=== PATIENT | female | born 1985 | race Caucasian/White ===

== ENCOUNTER 2018-08-03 13:54 | Emergency (ER) | payer OTHER ==
--- NOTE | 2018-08-03 17:03 | ED Physician Documentation ---
PD HPI HEENT - Stated complaint Stated Complaint: THROAT PX - Chief complaint Chief Complaint: General - History obtained from History obtained from: Patient - History of Present Illness Timing - onset: How many days ago (2) Timing - duration: Days (2) Timing - details: Still present Location: Throat - Additional information Additional information: The patient is a 33-year-old female who presents with sore throat, congestion, and cough of 2 days' duration. She denies fever, headache, or abdominal symptoms. Her 9-year-old daughter has also been sick with respiratory symptoms. Review of Systems Constitutional: denies: Fever Eyes: denies: Irritation Ears: denies: Ear pain Nose: reports: Congestion Throat: reports: Sore throat Cardiac: denies: Chest pain / pressure Respiratory: reports: Cough. denies: Dyspnea GI: denies: Abdominal Pain, Nausea, Vomiting : denies: Dysuria Skin: denies: Rash Neurologic: denies: Headache PD PAST MEDICAL HISTORY - Past Medical History Past Medical History: Yes Cardiovascular: None Respiratory: None Neuro: None Endocrine/Autoimmune: None GI: None HOTEL NIGHT AUDITOR: None : None HEENT: None Psych: None Musculoskeletal: None Derm: None - Past Surgical History Past Surgical History: Yes General: Appendectomy Ortho: Spine surgery /HOTEL NIGHT AUDITOR: section - Present Medications Home Medications: Ambulatory Orders Medication Instructions Recorded Confirmed No Known Home Medications 08/03/18 08/03/18 - Allergies Allergies/Adverse Reactions: Allergies Allergy/AdvReac Type Severity Reaction Status Date / Time No Known Drug Allergies Allergy Verified 08/03/18 14:16 - Social History Does the pt smoke?: No Smoking Status: Former smoker Does the pt drink ETOH?: Yes Does the pt have substance abuse?: No - Immunizations Immunizations are current?: Yes - POLST Patient has POLST: No PD ED PE NORMAL - Vitals Vital signs reviewed: Yes (normal) - General General: Alert and oriented X 3, Well developed/nourished - HEENT HEENT: Atraumatic, EOMI, Ears normal, Other (Oropharynx mildly erythematous, without exudates or tonsillar swelling.) - Neck Neck: Supple, no meningeal sign, No adenopathy, No JVD - Cardiac Cardiac: RRR - Respiratory Respiratory: No respiratory distress, Clear bilaterally - Abdomen Abdomen: Soft, Non tender - Derm Derm: No rash - Extremities Extremities: No tenderness to palpate - Neuro Neuro: Alert and oriented X 3, No motor deficit, Normal speech Results - Vitals Vitals: Oxygen O2 Source Room air - Labs Labs: Microbiology 08/03/18 14:28 Group A Strep Throat Culture - Final Throat MIXED OROPHARYNGEAL MATTEO PRESENT. NO BETA STREP PRESENT IN CULTURE. Laboratory Tests 08/03/18 14:28 Group A Strep Rapid Negative PD MEDICAL DECISION MAKING - ED course Complexity details: reviewed results, re-evaluated patient, considered differential, d/w patient, d/w family ED course: The patient's presentation is most consistent with viral pharyngitis. Rapid strep screen is negative. I discussed with her the expected course of illness, symptomatic treatment and outpatient follow-up, as well as potentially worrisome signs or symptoms that should prompt reevaluation in the emergency department. Departure - Departure Disposition: 01 Home, Self Care Clinical Impression: Viral pharyngitis Condition: Stable Instructions: ED Pharyngitis Viral Follow-Up: POPPY TERRY MD [Primary Care Provider] - Comments: Use Tylenol or ibuprofen as needed for fever or discomfort. Drink plenty of fluids. You can gargle with cool liquids. Follow-up with your primary physician within 1-2 weeks. Call to schedule an appointment. Return to the emergency department if increasing difficulty swallowing, shortness of breath, or otherwise worsening symptoms. Discharge Date/Time: 08/03/18 17:10
[2018-08-03 17:09] VITALS: BP 112/70
== END 2018-08-03 17:10 | disposition home or self-care (01) ==
LOC: ED 13:54
DX: J02.8 Acute pharyngitis due to other specified organisms (principal); B97.89 Other viral agents as the cause of diseases classified elsewhere; Z87.891 Personal history of nicotine dependence
CPT/HCPCS: 87070; 87430; 99282; 99283

== ENCOUNTER 2019-07-02 12:52 | Emergency (ER) | payer OTHER ==
[2019-07-02 12:59] VITALS: BP 111/82
--- NOTE | 2019-07-02 14:05 | XRAY Report ---
Reason: knee inj Procedure Date: 07/02/2019 Accession Number: [id number] / [id number] Procedure: XR - Knee 4 View LT CPT Code: FULL RESULT: EXAM: LEFT KNEE RADIOGRAPHY EXAM DATE: 07/02/2019 01:26 PM. CLINICAL HISTORY: Knee inj. COMPARISON: None. TECHNIQUE: 4 views. FINDINGS: Bones: No fracture or focal bony lesion. Joints: No evidence of dislocation. Soft Tissues: There is mild prepatellar soft tissue swelling. There is a low dorsal soft tissue defect. IMPRESSION: No evidence of fracture or dislocation. RADIA
--- NOTE | 2019-07-02 15:18 | ED Physician Documentation ---
PD HPI LOWER EXT INJURY - Stated complaint Stated Complaint: GLF/L KNEE PX - Chief complaint Chief Complaint: Trauma Ext - History obtained from History obtained from: Patient - History of Present Illness PD HPI LOW EXT INJURY LOCATION: Left (Trip and fall hitting her left knee on concrete with moderate pain at home just prior to arrival. Declines pain medication. No other injuries. Of note she has a long history of spinal problems and has no numbness in the left leg without saddle anesthesia or fevers.) Review of Systems Constitutional: denies: Fever, Chills Respiratory: denies: Dyspnea, Cough GI: denies: Abdominal Pain, Nausea, Vomiting PD PAST MEDICAL HISTORY - Past Medical History Past Medical History: Yes Cardiovascular: None Respiratory: None Neuro: None Endocrine/Autoimmune: None GI: None TOWER TECHNICIAN: None : None HEENT: None Psych: None Musculoskeletal: None Derm: None Other Past Medical History: spina bifida - Past Surgical History Past Surgical History: Yes General: Appendectomy Ortho: Spine surgery /TOWER TECHNICIAN: section - Present Medications Home Medications: Ambulatory Orders Medication Instructions Recorded Confirmed No Known Home Medications 08/03/18 07/02/19 - Allergies Allergies/Adverse Reactions: Allergies Allergy/AdvReac Type Severity Reaction Status Date / Time No Known Drug Allergies Allergy Verified 07/02/19 15:02 - Social History Does the pt smoke?: No Smoking Status: Never smoker Does the pt drink ETOH?: Yes Does the pt have substance abuse?: No - Immunizations Immunizations are current?: Yes - POLST Patient has POLST: No PD ED PE NORMAL - Vitals Vital signs reviewed: Yes - General General: Alert and oriented X 3, No acute distress - Extremities Extremities: Other (Left knee has a shallow abrasion inferior to the patella with tenderness over the tibial plateau but no limited range of motion or ligamentous laxity. Negative grind testing. She has diminished but not absent sensation in the left L4 distribution with diminished left L4 reflex, but that is somewhat hard to check because of her knee injury.) - Neuro Neuro: Alert and oriented X 3, Normal speech Results - Vitals Vitals: Vital Signs - 24 hr 07/02/19 12:55 Temperature 36.5 C Heart Rate 69 Respiratory 116 H Rate Blood Pressure 111/82 H O2 Saturation 100 Oxygen O2 Source Room air - Rads (name of study) 4v L knee Radiology: EMP read contemporaneously (no frx) Departure - Departure Disposition: 01 Home, Self Care Clinical Impression: Lumbar radiculopathy Contusion of left knee Qualifiers: Encounter type: initial encounter Qualified Code(s): S80.02XA - Contusion of left knee, initial encounter Condition: Good Record reviewed to determine appropriate education?: Yes Instructions: ED Contusion Soft Tissue Comments: You can wear the splint as needed for the knee, return for new or worsening symptoms. Let your physical therapist know tomorrow when you see them that you have probably a new left L4 radiculopathy. Also let your primary care physician know this. Return for new or worsening symptoms. Forms: Activity restrictions
== END 2019-07-02 15:25 | disposition home or self-care (01) ==
LOC: ED 12:52
DX: S80.02XA Contusion of left knee, initial encounter (principal); S80.212A Abrasion, left knee, initial encounter; W01.0XXA Fall on same level from slipping, tripping and stumbling without subsequent striking against object, initial encounter; Y92.009 Unspecified place in unspecified non-institutional (private) residence as the place of occurrence of the external cause; M54.16 Radiculopathy, lumbar region
CPT/HCPCS: 99283

== ENCOUNTER 2019-08-09 20:34 | Emergency (ER) | payer OTHER ==
[2019-08-09 20:53] VITALS: BP 138/76
[2019-08-09 21:01] LABS: BILIRUBIN,URINE NEGATIVE (NEGATIVE); GLUCOSE, URINE (UA) NEGATIVE (NEGATIVE); KETONES,URINE (UA) NEGATIVE (NEGATIVE); LEUKOCYTE ESTERASE, URINE TRACE (NEGATIVE); NITRITE,URINE POSITIVE (NEGATIVE); OCCULT BLOOD,URINE LARGE (NEGATIVE); PH,URINE 6.5 PH (5.0-7.5); PROTEIN,URINE NEGATIVE (NEGATIVE); UROBILINOGEN,URINE 0.2 (NORMAL) E.U./dL (NORMAL)
--- NOTE | 2019-08-09 21:01 | ED Physician Documentation ---
PD HPI FEMALE - Stated complaint Stated Complaint: BK PX - Chief complaint Chief Complaint: Back Pain - History obtained from History obtained from: Patient - History of Present Illness Timing - onset: Yesterday Timing - details: Gradual onset, Waxing and waning Pain level max: 9 Associated symptoms: Back pain (bilateral). No: Fever Contributing factors: No: Similar symptoms before: Diagnosis (similar to UTI/"kidney infection" that she had approximately 10 years ago) Recently seen: Not recently seen - Additional information Additional information: c/o bilateral back pain, waxing and waning since yesterday, associated with burning dysuria and urinary frequency. Reports urine has been cloudy with foul odor. Review of Systems Constitutional: denies: Fever, Chills, Sweats GI: denies: Abdominal Pain, Nausea, Vomiting, Constipation, Diarrhea : reports: Dysuria, Frequency. denies: Discharge, Now EGA Musculoskeletal: reports: Back pain PD PAST MEDICAL HISTORY - Past Medical History Past Medical History: No Cardiovascular: None Respiratory: None Neuro: None Endocrine/Autoimmune: None GI: None FLUID PUMP OPERATOR: None : None HEENT: None Psych: None Musculoskeletal: None Derm: None - Past Surgical History Past Surgical History: Yes General: Appendectomy Ortho: Spine surgery /FLUID PUMP OPERATOR: section - Present Medications Home Medications: Ambulatory Orders Medication Instructions Recorded Confirmed Ciprofloxacin HCl [Cipro] 500 mg PO BID #14 tablet 08/09/19 Cranberry Fruit Extract [Cranberry] 500 mg PO 08/09/19 Phenazopyridine HCl [Pyridium] 200 mg PO TID PRN #6 tablet 08/09/19 - Allergies Allergies/Adverse Reactions: Allergies Allergy/AdvReac Type Severity Reaction Status Date / Time No Known Drug Allergies Allergy Verified 08/09/19 20:54 - Social History Does the pt smoke?: No Smoking Status: Never smoker Does the pt drink ETOH?: Yes Does the pt have substance abuse?: No - Immunizations Immunizations are current?: Yes - POLST Patient has POLST: No PD ED PE NORMAL - Vitals Vital signs reviewed: Yes - General General: Alert and oriented X 3, No acute distress, Well developed/nourished - Abdomen Abdomen: Soft, Non tender - Back Back: Other (mild bilateral CVA tenderness) Results - Vitals Vitals: Vital Signs - 24 hr 08/09/19 20:48 Temperature 37.5 C Heart Rate 128 H Respiratory 18 Rate Blood Pressure 138/76 H O2 Saturation 100 Oxygen O2 Source Room air - Labs Labs: Laboratory Tests 08/09/19 20:47 Urine Color LT. YELLOW Urine Clarity SL. CLOUDY Urine pH 6.5 Ur Specific [place] 1.010 Urine Protein NEGATIVE Urine Glucose (UA) NEGATIVE Urine Ketones NEGATIVE Urine Occult Blood LARGE H Urine Nitrite POSITIVE H Urine Bilirubin NEGATIVE Urine Urobilinogen 0.2 (NORMAL) Ur Leukocyte Esterase TRACE H Urine RBC 0-5 Urine WBC 6-10 H Ur Squamous Epith Cells FEW Squamous Urine Bacteria Moderate H Ur Microscopic Review INDICATED Urine Culture Comments INDICATED Urine HCG, Qual NEGATIVE PD MEDICAL DECISION MAKING - ED course Complexity details: reviewed results, considered differential, d/w patient ED course: Patient says she has no drug allergies, but she says she had n/v with sulfa, macrobid, and amoxil. She recognizes this does not constitute true allergy, but she describes n/v to the point of not being able to tolerate the medications and thus I will prescribe Cipro for this UTI Departure - Departure Disposition: 01 Home, Self Care Clinical Impression: UTI (urinary tract infection) Qualifiers: Urinary tract infection type: acute cystitis Hematuria presence: with hematuria Qualified Code(s): N30.01 - Acute cystitis with hematuria Condition: Good Instructions: ED UTI Cystitis Female Follow-Up: PPOPY TERRY MD [Primary Care Provider] - (3-4 days if symptoms not improving ) Prescriptions: Ciprofloxacin HCl [Cipro] 500 mg PO BID #14 tablet Phenazopyridine HCl [Pyridium] 200 mg PO TID PRN #6 tablet PRN Reason: dysuria Discharge Date/Time: 08/09/19 21:30
[2019-08-09 21:04] LABS: CLARITY,URINE SL. CLOUDY (CLEAR); HCG UR QUAL NEGATIVE
[2019-08-09 21:13] LABS: BACTERIA,URINE Moderate /HPF (None Seen); RBC,URINE 0-5 /HPF (0-5); SQUAMOUS EPITHELIAL CELL,UR FEW Squamous (<= Few)
[2019-08-09] MEDS ORDERED: PHENAZOPYRIDINE 100 MG TABLET PO STA (21:13)
[2019-08-09] MEDS ORDERED: CIPROFLOXACIN 250 MG TABLET PO STA (21:13)
== END 2019-08-09 21:30 | disposition home or self-care (01) ==
LOC: ED 20:34
DX: N30.01 Acute cystitis with hematuria (principal)
CPT/HCPCS: 81001; 81025; 87086; 87181; 99283; A9270; 81003

== ENCOUNTER 2019-12-29 15:37 | Emergency (ER) | payer OTHER ==
[2019-12-29] MEDS ORDERED: LORazepam 2 MG/ML VIAL IVP STA (16:17)
--- NOTE | 2019-12-29 16:27 | ED Physician Documentation ---
History of Present Illness - Stated complaint Stated Complaint: UPPER BACK PX, DIFFICULTY BREATHING, TINGLING ARMS - Chief complaint Chief Complaint: Cardiac - History obtained from History obtained from: Patient, Family - History of Present Illness Timing: Yesterday Pain level max: 3 Pain level now: 2 - Additonal information Additional information: 34-year-old female states that she had a "rare form of spina bifida" in her neck. She states that she had a cervical spine fusion in 2018 and that they "shaved part of her disc". She states that since yesterday she has had intermittent episodes of [id number] sensation in the back of her neck going to her shoulders. This lasts for a few seconds. Nothing makes it better or worse. Denies any trauma. Denies any chest pain. She does feel like she is occasionally short of breath. She does have a history of anxiety, but states that she does not feel like she is stressed about anything. Review of Systems Ten Systems: 10 systems reviewed and negative Constitutional: denies: Fever, Chills Throat: denies: Sore throat Cardiac: denies: Chest pain / pressure, Palpitations Respiratory: reports: Dyspnea. denies: Cough, Wheezing GI: denies: Abdominal Pain, Vomiting, Diarrhea : denies: Dysuria, Frequency, Hesitancy, Now EGA Skin: denies: Rash Musculoskeletal: denies: Neck pain, Back pain Neurologic: denies: Headache PD PAST MEDICAL HISTORY - Past Medical History Cardiovascular: None Respiratory: None Neuro: None Endocrine/Autoimmune: None GI: None LOT TECHNICIAN: None : None HEENT: None Psych: None Musculoskeletal: None Derm: None - Past Surgical History Past Surgical History: Yes General: Appendectomy Ortho: Spine surgery /LOT TECHNICIAN: section - Present Medications Home Medications: Ambulatory Orders Medication Instructions Recorded Confirmed Meloxicam [Mobic] 7.5 mg PO BID PRN #20 tablet 12/29/19 - Allergies Allergies/Adverse Reactions: Allergies Allergy/AdvReac Type Severity Reaction Status Date / Time No Known Drug Allergies Allergy Verified 08/09/19 20:54 - Social History Does the pt smoke?: No Smoking Status: Never smoker Does the pt drink ETOH?: Yes Does the pt have substance abuse?: No - Immunizations Immunizations are current?: Yes - POLST Patient has POLST: No PD ED PE NORMAL - Vitals Vital signs reviewed: Yes - General General: Alert and oriented X 3, No acute distress, Well developed/nourished - HEENT HEENT: PERRL, Moist mucous membranes - Neck Neck: Supple, no meningeal sign, No bony TTP, Other (Mild tenderness at the base of the neck. She states that this re-creates the pins and needle sensation.) - Cardiac Cardiac: RRR - Respiratory Respiratory: No respiratory distress, Clear bilaterally - Abdomen Abdomen: Soft, Non tender, Non distended - Derm Derm: Warm and dry, No rash - Extremities Extremities: Other (Normal bilateral lower extremity patellar and ankle jerk reflexes. Normal great toe extension bilaterally. 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, No motor deficit, No sensory deficit, Normal speech - Psych Psych: Normal mood, Normal affect Results - Vitals Vitals: Vital Signs - 24 hr 12/29/19 12/29/19 12/29/19 15:53 16:16 16:17 Temperature 36.8 C Heart Rate 83 88 77 Respiratory 28 H 24 24 Rate Blood Pressure 141/90 H 118/77 133/77 H O2 Saturation 100 99 99 12/29/19 18:11 Temperature Heart Rate 86 Respiratory 16 Rate Blood Pressure 112/64 O2 Saturation 100 Oxygen O2 Source Room air - EKG (time done) 1629 Rate: Rate (enter#) (89) Rhythm: NSR Alpha: Normal Intervals: Normal IN QRS: Normal Ischemia: Normal ST segments - Labs Labs: Laboratory Tests 12/29/19 12/29/19 12/29/19 16:20 16:20 16:20 WBC 10.9 H RBC 4.49 Hgb 13.3 Hct 39.2 MCV 87.3 MCH 29.6 MCHC 33.9 RDW 12.8 Plt Count 353 MPV 9.0 Neut # (Auto) 7.3 H Lymph # (Auto) 2.7 [place] # (Auto) 0.7 Eos # (Auto) 0.1 Baso # (Auto) 0.0 Absolute Nucleated RBC 0.00 Nucleated RBC % 0.0 ESR 28 H Sodium 136 Potassium 3.2 L Chloride 100 L Carbon Dioxide 26 Anion Gap 10.0 BUN 16 Creatinine 1.0 Estimated GFR (MDRD) 63 L Glucose 93 Calcium 9.4 Phosphorus 1.9 L Magnesium 1.7 Total Bilirubin 0.6 AST 23 ALT 34 Alkaline Phosphatase 75 C-Reactive Protein < 1.0 Total Protein 8.1 Albumin 4.5 Globulin 3.6 Albumin/Globulin Ratio 1.3 Lipase 31 PD MEDICAL DECISION MAKING - ED course Complexity details: reviewed results, re-evaluated patient, considered differential, d/w patient, d/w family, d/w sales enablement consultant ED course: 34-year-old female with central canal stenosis. Discussed the case with neurosurgery at [facility], Dr. Narayanan, Who compared today's images with her prior images at [facility] and states that they are unchanged. He states he will see her in clinic. They will call her tomorrow with an appointment. They will schedule this urgently. She was given a dose of Ativan here which helped. Also given dexamethasone. No significant neurological deficits at this time. Patient and family counseled regarding signs and symptoms for which I believe and urgent re-evaluation would be necessary. Patient with good understanding of and agreement to plan and is comfortable going home at this time This document was made in part using voice recognition software. While efforts are made to proofread this document, sound alike and grammatical errors may occur. Departure - Departure Disposition: 01 Home, Self Care Clinical Impression: Neck pain, Central stenosis of spinal canal Condition: Good Instructions: ED Neck Pain No Trauma Follow-Up: Raji Narayanan JR, MD [Physician No Access] - Within 1 week Prescriptions: Meloxicam [Mobic] 7.5 mg PO BID PRN #20 tablet PRN Reason: Pain Comments: Return if you worsen. Follow-up with [facility]. They will contact you for an appointment. They should contact you tomorrow. The number for the clinic is [phone]. Your CT scan is unchanged compared to your prior. These images were reviewed by Dr. Narayanan at [facility] Discharge Date/Time: 12/29/19 18:38
[2019-12-29 16:34] LABS: BASOPHILS % (AUTO) 0.4 %; EOSINOPHILS # (AUTO) 0.1 10^3/uL (0.0-0.7); EOSINOPHILS % (AUTO) 0.6 %; HGB - HEMOGLOBIN 13.3 g/dL (12.0-16.0); LYMPHOCYTES # (AUTO) 2.7 10^3/uL (1.5-3.5); LYMPHOCYTES % (AUTO) 24.6 %; MEAN CORPUSCULAR HEMOGLOBIN 29.6 pg (27.0-31.0); MEAN CORPUSCULAR HGB CONC 33.9 g/dL (32.0-36.0); MEAN CORPUSCULAR VOLUME 87.3 fL (81.0-99.0); MONOCYTES # (AUTO) 0.7 10^3/uL (0.0-1.0); MONOCYTES % (AUTO) 6.8 %; NEUTROPHILS # (AUTO) 7.3 10^3/uL (1.5-6.6); NEUTROPHILS % (AUTO) 67.2 %; PLT - PLATELET COUNT 353 10^3/uL (130-450); RED BLOOD COUNT 4.49 10^6/uL (4.20-5.40); RED CELL DISTRIBUTION WIDTH 12.8 % (12.0-15.0); WHITE BLOOD COUNT 10.9 x10^3/uL (4.8-10.8)
[2019-12-29 16:50] LABS: ALBUMIN 4.5 g/dL (3.2-5.5); ALBUMIN/GLOBULIN RATIO 1.3 (1.0-2.2); ALKALINE PHOSPHATASE 75 IU/L (42-121); ALT ALANINE AMINOTRANSFERASE 34 IU/L (10-60); AST ASPARTATE AMINOTRANSFERASE 23 IU/L (10-42); BILIRUBIN,TOTAL 0.6 mg/dL (0.2-1.0); BUN - BLOOD UREA NITROGEN 16 mg/dL (6-20); CALCIUM 9.4 mg/dL (8.5-10.3); CARBON DIOXIDE - CO2 26 mmol/L (21-32); CHLORIDE 100 mmol/L (101-111); GFR - MDRD 63 (>89); GLUCOSE 93 mg/dL (70-100); LIPASE 31 U/L (22-51); MAGNESIUM 1.7 mg/dL (1.7-2.8); PHOSPHORUS 1.9 mg/dL (2.5-4.6); SODIUM 136 mmol/L (135-145); TOTAL PROTEIN 8.1 g/dL (6.7-8.2)
[2019-12-29 17:01] LABS: CRP - C-REACTIVE PROTEIN < 1.0 mg/dL (0-1.0)
--- NOTE | 2019-12-29 17:23 | CT Report ---
Reason: neck pain, h/o fusion Procedure Date: 12/29/2019 Accession Number: [id number] / [id number] Procedure: CT - CERVICAL SPINE WO CPT Code: Final Report FULL RESULT: EXAM: CT CERVICAL SPINE WITHOUT CONTRAST DATE: 12/29/2019 04:44 PM. HISTORY: Neck pain, h/o fusion. COMPARISONS: None. TECHNIQUE: Thin-section axial images were acquired of the cervical spine without contrast. Post-processing: Coronal and sagittal reformats. Other: None. In accordance with CT protocol optimization, one or more of the following dose reduction techniques were utilized for this exam: automated exposure control, adjustment of mA and/or KV based on patient size, or use of iterative reconstructive technique. FINDINGS: Alignment: Within normal limits. No significant spondylolisthesis. Mild levocurvature noted. Bones: No acute fractures. There is a likely chronic compression deformity at C5. Status post ACDF at C3-C4. No hardware breaks or loosening. There is bony fusion at multiple levels including C2-C3, C5-C6, and C7-T1. Spinal Canal: Severe spinal canal stenosis at C3-C4 by posterior disk osteophyte complex and uncovertebral joint hypertrophy. There is severe bilateral neuroforaminal narrowing at these levels. Other: Visualized unenhanced soft tissues demonstrate no acute abnormalities. The partially imaged lung apices are clear. IMPRESSION: No acute cervical spine fractures. No evidence for hardware complication. Severe spinal stenosis and bilateral neuroforaminal narrowing at C3-C4. Given the severe degree of narrowing, correlate as to focal neurological symptoms and consider MRI. RADIA
[2019-12-29 18:12] VITALS: BP 112/64
[2019-12-29] MEDS ORDERED: DEXAMETHASONE 10 MG/ML VIAL PO STA (18:14)
[2019-12-29] MEDS ORDERED: CHERRY SYRUP 10 ML UDC PO ONE (18:22)
== END 2019-12-29 18:38 | disposition home or self-care (01) ==
LOC: ED 15:37
DX: M54.2 Cervicalgia (principal); M48.02 Spinal stenosis, cervical region
CPT/HCPCS: 36415; 72125; 80053; 83690; 83735; 84100; 85025; 85651; 86140; 93005; 96374; 99284; 99285; A9270; J2060

== ENCOUNTER 2020-01-20 21:32 | Emergency (ER) | payer OTHER ==
--- NOTE | 2020-01-20 22:03 | ED Physician Documentation ---
PD HPI ABD PAIN - Stated complaint Stated Complaint: ABD PX, FEMALE - Chief complaint Chief Complaint: Abd Pain - History obtained from History obtained from: Patient - History of Present Illness Timing - onset: Yesterday Timing - details: Gradual onset, Constant, Waxing and waning Pain level now: 10 Quality: Cramping, Pain Location: LLQ Radiation: Other (no radiation) Improved by: Other (no ameliorating factors) Worsened by: Palpation Associated symptoms: No: Fever, Nausea, Vomiting, Diarrhea, Constipation Similar symptoms before: Has not had sx before Recently seen: Emergency Dept (Recent T+R from this ED for unrelated c/o) - Additional information Additional information: c/o left pelvic and LLQ pain since yesterday, sudden onset associated with sudden vaginal bleeding. The pain has been constant but waxing and waning in intensity, gradually worsening in severity. 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 HEENT: None Psych: None Musculoskeletal: None Derm: None - Past Surgical History Past Surgical History: Yes General: Appendectomy Ortho: Spine surgery /TRIMMING MACHINE SET UP OPERATOR: section - Present Medications Home Medications: Ambulatory Orders Medication Instructions Recorded Confirmed Meloxicam [Mobic] 7.5 mg PO BID PRN #20 tablet 12/29/19 Hydrocodone/Acetaminophen 1 - 2 each PO Q6H PRN #14 tablet 01/21/20 [Hydrocodon-Acetaminophen 5-325] Ondansetron Odt [Zofran] 4 mg TL Q6H PRN #10 tablet 01/21/20 Tamsulosin [Flomax] 0.4 mg PO DAILY #10 capsule 01/21/20 - Allergies Allergies/Adverse Reactions: Allergies Allergy/AdvReac Type Severity Reaction Status Date / Time hydromorphone [From Dilaudid] AdvReac Severe Nausea Verified 01/21/20 02:58 - Social History Does the pt smoke?: No Smoking Status: Never smoker Does the pt drink ETOH?: Yes Does the pt have substance abuse?: No - Immunizations Immunizations are current?: Yes - POLST Patient has POLST: No PD ED PE NORMAL - Vitals Vital signs reviewed: Yes - General General: Alert and oriented X 3, No acute distress, Well developed/nourished - Cardiac Cardiac: RRR, No murmur - Respiratory Respiratory: No respiratory distress, Clear bilaterally - Abdomen Abdomen: Soft, Non distended, Other (left anterior hemipelvic and LLQ TTP ) - Back Back: No CVA TTP - Derm Derm: Normal color, Warm and dry, No rash Results - Vitals Vitals: Vital Signs - 24 hr 01/20/20 01/21/20 21:42 02:20 Temperature 36.9 C 36.6 C Heart Rate 72 101 H Respiratory 16 14 Rate Blood Pressure 140/78 H O2 Saturation 100 98 Oxygen O2 Source Room air - Labs Labs: Laboratory Tests 01/20/20 01/20/20 01/21/20 22:04 22:04 00:50 WBC 9.0 RBC 4.28 Hgb 12.5 Hct 38.2 MCV 89.3 MCH 29.2 MCHC 32.7 RDW 13.1 Plt Count 348 MPV 9.0 Neut # (Auto) 5.3 Lymph # (Auto) 2.8 [place] # (Auto) 0.8 Eos # (Auto) 0.1 Baso # (Auto) 0.0 Absolute Nucleated RBC 0.00 Nucleated RBC % 0.0 Sodium 133 L Potassium 3.5 Chloride 103 Carbon Dioxide 24 Anion Gap 6.0 BUN 17 Creatinine 0.8 Estimated GFR (MDRD) 81 L Glucose 98 Calcium 8.6 Total Bilirubin 0.4 AST 20 ALT 22 Alkaline Phosphatase 65 Total Protein 7.9 Albumin 4.3 Globulin 3.6 Albumin/Globulin Ratio 1.2 Lipase 32 Urine Color YELLOW Urine Clarity CLEAR Urine pH 6.0 Ur Specific [place] <=1.005 Urine Protein NEGATIVE Urine Glucose (UA) NEGATIVE Urine Ketones NEGATIVE Urine Occult Blood MODERATE H Urine Nitrite NEGATIVE Urine Bilirubin NEGATIVE Urine Urobilinogen 0.2 (NORMAL) Ur Leukocyte Esterase NEGATIVE Urine RBC 6-10 H Urine WBC 0-3 Ur Squamous Epith Cells MANY Squamous H Urine Bacteria Rare Ur Microscopic Review INDICATED Urine Culture Comments NOT INDICATED Urine HCG, Qual 01/21/20 00:50 WBC RBC Hgb Hct MCV MCH MCHC RDW Plt Count MPV Neut # (Auto) Lymph # (Auto) [place] # (Auto) Eos # (Auto) Baso # (Auto) Absolute Nucleated RBC Nucleated RBC % Sodium Potassium Chloride Carbon Dioxide Anion Gap BUN Creatinine Estimated GFR (MDRD) Glucose Calcium Total Bilirubin AST ALT Alkaline Phosphatase Total Protein Albumin Globulin Albumin/Globulin Ratio Lipase Urine Color Urine Clarity Urine pH Ur Specific [place] <=1.005 Urine Protein Urine Glucose (UA) Urine Ketones Urine Occult Blood Urine Nitrite Urine Bilirubin Urine Urobilinogen Ur Leukocyte Esterase Urine RBC Urine WBC Ur Squamous Epith Cells Urine Bacteria Ur Microscopic Review Urine Culture Comments Urine HCG, Qual NEGATIVE - Rads (name of study) CT A/P w/ IV contrast Radiology: Prelim report reviewed, See rad report PD MEDICAL DECISION MAKING - ED course Complexity details: reviewed old records, reviewed results, re-evaluated patient, considered differential, d/w patient ED course: D/W Dr. Landa (regarding the CT finding of the left boone appearing embedded in the myometrium); she says this can be reassessed in outpatient setting and is not an indication for immediate IUD removal. I offered IUD removal to the patient, but she says she would prefer to not have it removed if it is not necessary. Patient's pain was controlled after several doses of IV medications (morphine, dilaudid). unfortunately, she then became very nauseas and had several episodes of emesis. She was held in ED until she was well enough for discharge (able to tolerate liquids and no longer vomiting; given IM phenergan prior to d/c) Departure - Departure Disposition: 01 Home, Self Care Clinical Impression: Renal colic on left side Condition: Good Instructions: ED Stone Renal W Colic Follow-Up: POPPY TERRY MD [Primary Care Provider] - Prescriptions: Hydrocodone/Acetaminophen [Hydrocodon-Acetaminophen 5-325] 1 - 2 each PO Q6H PRN #14 tablet PRN Reason: pain Ondansetron Odt [Zofran] 4 mg TL Q6H PRN #10 tablet PRN Reason: Nausea / Vomiting Tamsulosin [Flomax] 0.4 mg PO DAILY #10 capsule Discharge Date/Time: 01/21/20 03:34
[2020-01-20 22:09] LABS: BASOPHILS % (AUTO) 0.2 %; EOSINOPHILS # (AUTO) 0.1 10^3/uL (0.0-0.7); HGB - HEMOGLOBIN 12.5 g/dL (12.0-16.0); LYMPHOCYTES # (AUTO) 2.8 10^3/uL (1.5-3.5); LYMPHOCYTES % (AUTO) 30.7 %; MEAN CORPUSCULAR HEMOGLOBIN 29.2 pg (27.0-31.0); MEAN CORPUSCULAR HGB CONC 32.7 g/dL (32.0-36.0); MEAN CORPUSCULAR VOLUME 89.3 fL (81.0-99.0); MONOCYTES # (AUTO) 0.8 10^3/uL (0.0-1.0); MONOCYTES % (AUTO) 8.4 %; NEUTROPHILS # (AUTO) 5.3 10^3/uL (1.5-6.6); NEUTROPHILS % (AUTO) 59.3 %; PLT - PLATELET COUNT 348 10^3/uL (130-450); RED BLOOD COUNT 4.28 10^6/uL (4.20-5.40); RED CELL DISTRIBUTION WIDTH 13.1 % (12.0-15.0)
[2020-01-20] MEDS ORDERED: MORPHINE 2 MG/ML CARPUJECT IVP STA ×2 (22:17→22:55)
[2020-01-20] MEDS ORDERED: IOVERSOL 320 100 ML VIAL IVP ONE ×2 (22:21→22:56)
[2020-01-20 22:22] LABS: ALBUMIN 4.3 g/dL (3.2-5.5); ALBUMIN/GLOBULIN RATIO 1.2 (1.0-2.2); BILIRUBIN,TOTAL 0.4 mg/dL (0.2-1.0); CALCIUM 8.6 mg/dL (8.5-10.3); CREATININE 0.8 mg/dL (0.4-1.0); TOTAL PROTEIN 7.9 g/dL (6.7-8.2)
[2020-01-20] MEDS ORDERED: HYDROmorphone 1 MG/ML SYRINGE IVP STA (23:06)
[2020-01-20] MEDS ORDERED: diphenhydrAMINE INJ 50 MG/ML VIAL IVP STA (23:26)
[2020-01-20] MEDS ORDERED: diphenhydrAMINE INJ 50 MG/ML VIAL ONE (23:29)
--- NOTE | 2020-01-20 23:40 | CT Report ---
Reason: LLQ pain, tenderness Procedure Date: 01/20/2020 Accession Number: [id number] / [id number] Procedure: CT - Abdomen/Pelvis W CPT Code: Final Report FULL RESULT: EXAM: CT ABDOMEN AND PELVIS EXAM DATE: 01/20/2020 11:00 PM. CLINICAL HISTORY: LLQ pain, tenderness. COMPARISONS: None. TECHNIQUE: Routine helical CT imaging was performed through the abdomen and pelvis. IV contrast: OPTIRAY 320. Enteric contrast: No. Reconstructions: Coronal and sagittal. In accordance with CT protocol optimization, one or more of the following dose reduction techniques were utilized for this exam: automated exposure control, adjustment of mA and/or KV based on patient size, or use of iterative reconstructive technique. FINDINGS: Lung Bases: Unremarkable. Liver: Normal. No masses. Gallbladder/Bile Ducts: Unremarkable. Spleen: Normal. Pancreas: Normal. Adrenal Glands: Normal. Kidneys: The kidneys are normally positioned and excreting contrast. There are extrarenal pelves bilaterally. In addition, there are several small parenchymal calcifications in the left kidney and a few tiny calculi within the calyces. There is left-sided hydronephrosis. There is a partially obstructing calculus at the left ureteral pelvic junction best seen on series 3 image 36 and reformatted coronal images series 5 image 30. This small calculus is approximately 2 x 3 mm. Peritoneal Cavity/Bowel: Normal. No free fluid, free air or adenopathy. No masses or acute inflammatory process. The appendix is nonvisualized likely resected. There are no inflammatory changes of the colon. Pelvic Organs: There is an IUD within the uterus. The left boone appears to be embedded within the myometrium. Vasculature: No aneurysms or other significant abnormality. Bones: No significant abnormality. Other: None. IMPRESSION: 1. Partially obstructing calculus at the left ureteropelvic junction resulting in left-sided hydronephrosis. 2. Several small nonobstructing calculi in the calyces of the left kidney and a few small parenchymal calcifications. 3. IUD within the uterus. The left boone appears to be embedded within the myometrium. RADIA
[2020-01-21] MEDS ORDERED: KETOROLAC 30 MG/ML VIAL IVP STA (00:23)
[2020-01-21] MEDS ORDERED: ONDANSETRON 4 MG/2 ML VIAL IVP STA (00:23)
[2020-01-21] MEDS ORDERED: SODIUM CHLORIDE 0.9% 1,000 ML IV STA (00:23)
[2020-01-21] MEDS ORDERED: TAMSULOSIN 0.4 MG CAPSULE PO STA (00:23)
[2020-01-21 00:58] LABS: BILIRUBIN,URINE NEGATIVE (NEGATIVE); GLUCOSE, URINE (UA) NEGATIVE (NEGATIVE); KETONES,URINE (UA) NEGATIVE (NEGATIVE); LEUKOCYTE ESTERASE, URINE NEGATIVE (NEGATIVE); NITRITE,URINE NEGATIVE (NEGATIVE); OCCULT BLOOD,URINE MODERATE (NEGATIVE); PROTEIN,URINE NEGATIVE (NEGATIVE); UROBILINOGEN,URINE 0.2 (NORMAL) E.U./dL (NORMAL)
[2020-01-21 01:00] LABS: CLARITY,URINE CLEAR (CLEAR); HCG UR QUAL NEGATIVE
[2020-01-21 01:04] LABS: BACTERIA,URINE Rare /HPF (None Seen); SQUAMOUS EPITHELIAL CELL,UR MANY Squamous (<= Few)
[2020-01-21 02:21] VITALS: BP 140/78
[2020-01-21] MEDS ORDERED: ONDANSETRON ODT 4 MG Prepack 2 TL PRN (02:29)
[2020-01-21] MEDS ORDERED: ONDANSETRON ODT 4 MG TABLET TL STA (02:29)
[2020-01-21] MEDS ORDERED: HYDROcod/ACET 5/325 Prepack 4 PO STA (02:30)
[2020-01-21] MEDS ORDERED: LIDOCAINE VISCOUS 2% 15 ML UDC MM STA (02:37)
[2020-01-21] MEDS ORDERED: MAG HYDROX/AL HYDROX/SIMETH 30 ML UDC PO STA (02:37)
[2020-01-21] MEDS ORDERED: PROMETHAZINE 25 MG/1 ML VIAL IM STA (02:40)
== END 2020-01-21 03:34 | disposition home or self-care (01) ==
LOC: ED 21:32
DX: N13.2 Hydronephrosis with renal and ureteral calculous obstruction (principal); N93.9 Abnormal uterine and vaginal bleeding, unspecified; Z97.5 Presence of (intrauterine) contraceptive device
CPT/HCPCS: 36415; 74177; 80053; 81001; 81025; 83690; 85025; 96361; 96372; 96374; 96375; 99284; 99285; A9270; J1170; J1200; Q0162; Q9967; 81003; 87086

== ENCOUNTER 2020-04-13 19:37 | Emergency (ER) | payer OTHER ==
[2020-04-13] MEDS ORDERED: CEPHALEXIN 250 MG Prepack 8 CAP BOTTLE PO STA (21:12)
[2020-04-13] MEDS ORDERED: predniSONE 20 MG TABLET PO STA (21:12)
[2020-04-13] MEDS ORDERED: DOXEPIN 10 MG CAPSULE PO STA (21:12)
--- NOTE | 2020-04-13 21:14 | ED Physician Documentation ---
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 : None HEENT: None Psych: None Musculoskeletal: None Derm: None - Past Surgical History Past Surgical History: Yes General: Appendectomy Ortho: Spine surgery /CARBONATION EQUIPMENT TENDER: section - Present Medications Home Medications: Ambulatory Orders Medication Instructions Recorded Confirmed Meloxicam [Mobic] 7.5 mg PO BID PRN #20 tablet 12/29/19 Hydrocodone/Acetaminophen 1 - 2 each PO Q6H PRN #14 tablet 01/21/20 [Hydrocodon-Acetaminophen 5-325] Ondansetron Odt [Zofran] 4 mg TL Q6H PRN #10 tablet 01/21/20 Tamsulosin [Flomax] 0.4 mg PO DAILY #10 capsule 01/21/20 Cephalexin [Keflex] 500 mg PO Q6H #28 capsule 04/13/20 Doxepin [SINEquan] 10 mg PO TID PRN #20 capsule 04/13/20 predniSONE [Deltasone] 20 mg PO [id number] #21 tab 04/13/20 - Allergies Allergies/Adverse Reactions: Allergies Allergy/AdvReac Type Severity Reaction Status Date / Time hydromorphone [From Dilaudid] AdvReac Severe Nausea Verified 04/13/20 19:43 - Social History Does the pt smoke?: No Smoking Status: Never smoker Does the pt drink ETOH?: Yes Does the pt have substance abuse?: No - Immunizations Immunizations are current?: Yes - POLST Patient has POLST: No PD ED PE NORMAL - Vitals Vital signs reviewed: Yes - General General: Alert and oriented X 3, No acute distress - Neck Neck: Supple, no meningeal sign, No bony TTP - Derm Derm: Other (There is redness around a large tattoo that is multicolored on the upper back with some vesicles around it most consistent with an allergic reaction but could be mild cellulitis 2.) - Neuro Neuro: Alert and oriented X 3, Normal speech Results - Vitals Vitals: Vital Signs - 24 hr 04/13/20 19:40 Temperature 37.0 C Heart Rate 98 Respiratory 18 Rate Blood Pressure 120/83 H O2 Saturation 100 Oxygen O2 Source Room air PD MEDICAL DECISION MAKING - ED course ED course: 34-year-old woman with what looks most like a contact dermatitis after a multicolored tattoo, less likely but still a possibility would be cellulitis and she is treated for both. Departure - Departure Disposition: 01 Home, Self Care Clinical Impression: Foreign body reaction to tattoo dyes Condition: Good Record reviewed to determine appropriate education?: Yes Instructions: ED Dermatitis Contact Prescriptions: predniSONE [Deltasone] 20 mg PO [id number] #21 tab Cephalexin [Keflex] 500 mg PO Q6H #28 capsule Doxepin [SINEquan] 10 mg PO TID PRN #20 capsule PRN Reason: Itching Comments: Do not drink or drive while taking the anti-itch medication. Return for new or worsening symptoms.
[2020-04-13 21:34] VITALS: BP 124/78
== END 2020-04-13 21:25 | disposition home or self-care (01) ==
LOC: ED 19:37
DX: T65.6X1A Toxic effect of paints and dyes, not elsewhere classified, accidental (unintentional), initial encounter (principal); L23.4 Allergic contact dermatitis due to dyes
CPT/HCPCS: 99283; A9270; J7512

== ENCOUNTER 2020-04-21 14:48 | Emergency (ER) | payer OTHER ==
--- NOTE | 2020-04-21 15:26 | ED Physician Documentation ---
PD HPI LOWER EXT INJURY - Stated complaint Stated Complaint: R ANKLE PX - Chief complaint Chief Complaint: Ext Problem - History obtained from History obtained from: Patient - History of Present Illness PD HPI LOW EXT INJURY LOCATION: Right, Ankle, Foot Type of injury: Other (walking) Where injury occurred: Work Timing - details: Abrupt onset Improved by: Rest, Ice, Immobilization Worsened by: Moving, Palpating - Additional information Additional information: 34-year-old female presents with acute right foot and ankle pain that she noticed yest afternoon when simply walking at work. She denies any falls twists or sprains. Has no history of previous injury. Patient reports that she went home elevated the foot and took ibuprofen. This a.m. she felt better and went to work again however as she was walking into work she stepped again and felt a sharp pain in her right foot and ankle. No swelling or ecchymosis. 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 : None HEENT: None Psych: None Musculoskeletal: None Derm: None - Past Surgical History Past Surgical History: Yes General: Appendectomy Ortho: Spine surgery /PACKAGE LIFT OPERATOR: section - Present Medications Home Medications: Ambulatory Orders Medication Instructions Recorded Confirmed Meloxicam [Mobic] 7.5 mg PO BID PRN #20 tablet 12/29/19 Hydrocodone/Acetaminophen 1 - 2 each PO Q6H PRN #14 tablet 01/21/20 [Hydrocodon-Acetaminophen 5-325] Ondansetron Odt [Zofran] 4 mg TL Q6H PRN #10 tablet 01/21/20 Tamsulosin [Flomax] 0.4 mg PO DAILY #10 capsule 01/21/20 Cephalexin [Keflex] 500 mg PO Q6H #28 capsule 04/13/20 Doxepin [SINEquan] 10 mg PO TID PRN #20 capsule 04/13/20 predniSONE [Deltasone] 20 mg PO [id number] #21 tab 04/13/20 Ibuprofen [Ibu] 600 mg PO Q6HR PRN #30 tablet 04/21/20 - Allergies Allergies/Adverse Reactions: Allergies Allergy/AdvReac Type Severity Reaction Status Date / Time hydromorphone [From Dilaudid] AdvReac Severe Nausea Verified 04/13/20 19:43 - Social History Does the pt smoke?: No Smoking Status: Never smoker Does the pt drink ETOH?: Yes Does the pt have substance abuse?: No - Immunizations Immunizations are current?: Yes - POLST Patient has POLST: No PD ED PE NORMAL - General General: Alert and oriented X 3, No acute distress, Well developed/nourished - HEENT HEENT: PERRL, EOMI - Extremities Extremities: No deformity. No: No tenderness to palpate, Normal ROM s pain (Pain at the base of right foot over fifth proximal metatarsal.Full range of motion of foot and ankle in all planes though painful. No swelling or erythema. 2+ DP pulse.) Results - Vitals Vitals: Vital Signs - 24 hr 04/21/20 14:54 Temperature 37.2 C Heart Rate 88 Respiratory 16 Rate Blood Pressure 132/73 H O2 Saturation 98 Oxygen O2 Source Room air - Rads (name of study) right ankle Radiology: Final report received (No acute fracture dislocation) right foot Radiology: Final report received (No acute fracture dislocation) PD MEDICAL DECISION MAKING - ED course Complexity details: reviewed results, re-evaluated patient, d/w patient ED course: 34-year-old female presents to the emergency department with acute right foot and ankle pain that began when she was simply walking at work yesterday.She has no falls or trauma - X-ray of the foot and ankle do not show any acute fractures or dislocations. There is no swelling or erythema and there is no fever to suggest infection. - I do not feel that this is a work related injury and I do not feel that the pain is related to any incident that occurred at work - I have advised patient to wear a walking boot and use crutches for the next week.She is to follow-up with her primary care provider in 1 week. If pain is not improved at that time further evaluation may be warranted including further imaging. - A modified work duty was prescribed for patient to avoid standing for longer than 2 hours or extensive periods of walking.I recommended ibuprofen for pain. Departure - Departure Disposition: Home, Self Care Clinical Impression: Right foot pain, Acute right ankle pain Condition: Stable Instructions: ED RICE, ED Acute Pain UKO Prescriptions: Ibuprofen [Ibu] 600 mg PO Q6HR PRN #30 tablet PRN Reason: Pain Comments: Danelle the x-ray of your foot and ankle do not show any broken bones. I am not sure the cause of your pain but I do not believe that it is related to any injury that occurred at work. I would like you to wear the walking boot when out of bed for the next week. I have also given you some crutches to help you get around. It is important that you see your primary care provider in 1 week. If your pain is not improved at that point repeat x-rays or further evaluation is warranted.
--- NOTE | 2020-04-21 15:33 | XRAY Report ---
PROCEDURE: Ankle 3 View RT INDICATIONS: Trauma TECHNIQUE: 3 views of the ankle were acquired. COMPARISON: None FINDINGS: Bones: No fractures or dislocations. Ankle mortise is normally aligned. No suspicious bony lesions . Soft tissues: No tibiotalar joint effusion. Achilles tendon appears normal. IMPRESSION: No fracture. No osseous lesion. If there is continued clinical concern for pathology, then repeat gabriela in film radiographs (7-10 days) or advanced imaging (CT, MR, bone scan) should be considered for furt her evaluation. Reviewed by: Emelina Andrade MD, PhD on 04/21/2020 3:32 PM PDT Approved by: Emelina Andrade MD, PhD on 04/21/2020 3:32 PM PDT Station ID: [id number]
--- NOTE | 2020-04-21 16:07 | XRAY Report ---
PROCEDURE: Foot 3 View RT INDICATIONS: right foot pain TECHNIQUE: 3 views of the foot were acquired. COMPARISON: None FINDINGS: Bones: No fractures or dislocations. No suspicious bony lesions. Os peroneum incidentally noted. No brandan. Soft tissues: No tibiotalar joint effusion. Achilles tendon appears normal. IMPRESSION: No fracture. No osseous lesion. If there is continued clinical concern for pathology, then repeat gabriela in film radiographs (7-10 days) or advanced imaging (CT, MR, bone scan) should be considered for furt her evaluation. Reviewed by: Emelina Andrade MD, PhD on 04/21/2020 4:06 PM PDT Approved by: Emelina Andrade MD, PhD on 04/21/2020 4:06 PM PDT Station ID: [id number]
[2020-04-21 16:59] VITALS: BP 135/73
== END 2020-04-21 16:59 | disposition home or self-care (01) ==
LOC: ED 14:48
DX: M25.571 Pain in right ankle and joints of right foot (principal); M79.671 Pain in right foot
CPT/HCPCS: 99283

== ENCOUNTER 2020-05-29 21:48 | Emergency (ER) | payer OTHER ==
--- NOTE | 2020-05-29 22:01 | ED Physician Documentation ---
History of Present Illness - Stated complaint Stated Complaint: TRIPLETT - History obtained from History obtained from: Patient - Additonal information Additional information: 35-year-old female was in the kitchen tonight when she accidentally was exposed to her left wrist from of some hot water. She is right-hand dominant. She denies any other complaints. Review of Systems Constitutional: reports: Reviewed and negative Eyes: reports: Reviewed and negative Ears: reports: Reviewed and negative Nose: reports: Reviewed and negative Throat: reports: Reviewed and negative Cardiac: reports: Reviewed and negative Respiratory: reports: Reviewed and negative GI: reports: Reviewed and negative : reports: Reviewed and negative Skin: reports: Other (Triplett to left wrist) Musculoskeletal: reports: Reviewed and negative Neurologic: reports: Reviewed and negative Psychiatric: reports: Reviewed and negative Endocrine: reports: Reviewed and negative Immunocompromised: reports: Reviewed and negative PD PAST MEDICAL HISTORY - Past Medical History Cardiovascular: None Respiratory: None Neuro: None Endocrine/Autoimmune: None 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 HEENT: None Psych: None Musculoskeletal: None Derm: None - Past Surgical History Past Surgical History: Yes General: Appendectomy Ortho: 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 surgery /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 - Present Medications Home Medications: Ambulatory Orders Medication Instructions Recorded Confirmed Meloxicam [Mobic] 7.5 mg PO BID PRN #20 tablet 12/29/19 Hydrocodone/Acetaminophen 1 - 2 each PO Q6H PRN #14 tablet 01/21/20 [Hydrocodon-Acetaminophen 5-325] Ondansetron Odt [Zofran] 4 mg TL Q6H PRN #10 tablet 01/21/20 Tamsulosin [Flomax] 0.4 mg PO DAILY #10 capsule 01/21/20 Cephalexin [Keflex] 500 mg PO Q6H #28 capsule 04/13/20 Doxepin [SINEquan] 10 mg PO TID PRN #20 capsule 04/13/20 predniSONE [Deltasone] 20 mg PO [id number] #21 tab 04/13/20 Ibuprofen [Ibu] 600 mg PO Q6HR PRN #30 tablet 04/21/20 Hydrocodone/Acetaminophen [[place] 1 each PO Q8HR PRN #4 tablet 05/29/20 5-325 Tablet] - Allergies Allergies/Adverse Reactions: Allergies Allergy/AdvReac Type Severity Reaction Status Date / Time hydromorphone [From Dilaudid] AdvReac Severe Nausea Verified 05/29/20 22:09 - Social History Does the pt smoke?: No Smoking Status: Never smoker Does the pt drink ETOH?: Yes Does the pt have substance abuse?: No - Immunizations Immunizations are current?: Yes - POLST Patient has POLST: No PD ED PE NORMAL - Vitals Vital signs reviewed: Yes - General General: Alert and oriented X 3, No acute distress, Well developed/nourished - HEENT HEENT: PERRL, Moist mucous membranes - Neck Neck: Supple, no meningeal sign - Cardiac Cardiac: RRR, No murmur, Strong equal pulses - Respiratory Respiratory: Clear bilaterally - Abdomen Abdomen: Normal bowel sounds, Soft, Non tender, Non distended - Derm Derm: Warm and dry - Extremities Extremities: No deformity, Other - Neuro Neuro: Alert and oriented X 3 - Psych Psych: Normal mood, Normal affect - Free text exam Free text exam: Left Distal forearm has a Volar superficial first-degree non-circumferential burn there is no involvement over the wrist, Radian, median, ulnar motor and sensory exam are intact compartments are soft neurovascularly intact strength is 5 out of 5 no triplett noted to the pommel or dorsal aspect of the hand or any of the fingers right upper extremity shows no evidence of triplett. Results - Vitals Vitals: Vital Signs - 24 hr 05/29/20 05/29/20 21:55 23:04 Temperature 37.1 C 36.7 C Heart Rate 131 H 90 Respiratory 138 H 18 Rate Blood Pressure 142/87 H 121/91 H O2 Saturation 98 100 Oxygen O2 Source Room air PD MEDICAL DECISION MAKING - ED course Complexity details: considered differential (First-degree triplett to the distal forearm of the left upper extremity.), other (Wounds were thoroughly irrigated bacitracin was applied simple dressing was applied. Tetanus was updated. Precautions given to return immediately with worsening pain or swelling ot herwise should follow-up with primary care provider tomorrow or return to the emergency department tomorrow for rechec) Departure - Departure Disposition: 01 Home, Self Care Clinical Impression: First degree burn of left wrist Qualifiers: Encounter type: initial encounter Qualified Code(s): T23.172A - Burn of first degree of left wrist, initial encounter Condition: Stable Instructions: ED Burn Scald Follow-Up: your, doctor [Other] - Tomorrow Prescriptions: Hydrocodone/Acetaminophen [[place] 5-325 Tablet] 1 each PO Q8HR PRN #4 tablet PRN Reason: Pain Discharge Date/Time: 05/29/20 23:14
[2020-05-29] MEDS ORDERED: BACITRACIN ZINC OINT 1 PACKET TOP STA (22:12)
[2020-05-29] MEDS ORDERED: TETANUS/DIPHTHERIA/PERTUSSIS 0.5 ML SYRINGE IM ONE (22:12)
[2020-05-29] MEDS ORDERED: HYDROcod/ACETAM 5/325 MG TABLET PO STA (22:14)
[2020-05-29 23:05] VITALS: BP 121/91
== END 2020-05-29 23:14 | disposition home or self-care (01) ==
LOC: ED 21:48
DX: T22.112A Burn of first degree of left forearm, initial encounter (principal); X12.XXXA Contact with other hot fluids, initial encounter; Y93.G3 Activity, cooking and baking; Y92.000 Kitchen of unspecified non-institutional (private) residence as the place of occurrence of the external cause; Z23 Encounter for immunization
CPT/HCPCS: 90471; 90715; 99283; A9270

== ENCOUNTER 2020-06-15 20:59 | Emergency (ER) | payer OTHER ==
--- NOTE | 2020-06-15 21:20 | ED Physician Documentation ---
PD HPI FEMALE - Stated complaint Stated Complaint: L ABD PAIN - Chief complaint Chief Complaint: Abd Pain - History obtained from History obtained from: Patient - History of Present Illness Timing - onset: Today (onset this morning of lower abd cramping pain mainly LLQ, which has increased steadily through the day, to more severe this evening. No flank pain.) Timing - duration: Days (1) Timing - details: Gradual onset, Still present Associated symptoms: Abdominal pain. No: Fever, Back pain, Vaginal bleeding, Vaginal discharge Contributing factors: IUD Similar symptoms before: No diagnosis (recent kidney stone left side in January [address] showing left ureteral stone. She says she felt better over several days and has not had chronic pain in flank. The pain then felt different though, from the current pain she is having.) Recently seen: Emergency Dept (January 2020 for left flank pain Dx with kidney stone.) Review of Systems Constitutional: denies: Fever, Chills Nose: denies: Rhinorrhea / runny nose, Congestion Throat: denies: Sore throat Respiratory: denies: Cough GI: reports: Abdominal Pain, Nausea. 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 - Present Medications Home Medications: Ambulatory Orders Medication Instructions Recorded Confirmed Meloxicam [Mobic] 7.5 mg PO BID PRN #20 tablet 12/29/19 Hydrocodone/Acetaminophen 1 - 2 each PO Q6H PRN #14 tablet 01/21/20 [Hydrocodon-Acetaminophen 5-325] Ondansetron Odt [Zofran] 4 mg TL Q6H PRN #10 tablet 01/21/20 Tamsulosin [Flomax] 0.4 mg PO DAILY #10 capsule 01/21/20 Cephalexin [Keflex] 500 mg PO Q6H #28 capsule 04/13/20 Doxepin [SINEquan] 10 mg PO TID PRN #20 capsule 04/13/20 predniSONE [Deltasone] 20 mg PO [id number] #21 tab 04/13/20 Ibuprofen [Ibu] 600 mg PO Q6HR PRN #30 tablet 04/21/20 Hydrocodone/Acetaminophen [[place] 1 each PO Q8HR PRN #4 tablet 05/29/20 5-325 Tablet] Naproxen 500 mg PO BID #25 tablet 06/16/20 Oxycodone HCl/Acetaminophen 1 each PO Q6H PRN #14 tablet 06/16/20 [Percocet 5-325 mg Tablet] Promethazine [Phenergan] 25 mg PO Q6H PRN #10 tab 06/16/20 - Allergies Allergies/Adverse Reactions: Allergies Allergy/AdvReac Type Severity Reaction Status Date / Time hydromorphone [From Dilaudid] AdvReac Severe Nausea Verified 05/29/20 22:09 - Social History Does the pt smoke?: No Smoking Status: Never smoker Does the pt drink ETOH?: Yes Does the pt have substance abuse?: No - Immunizations Immunizations are current?: Yes - POLST Patient has POLST: No PD ED PE NORMAL - Vitals Vital signs reviewed: Yes - General General: Alert and oriented X 3, Well developed/nourished, Other (appears very much in pain, with knees drawn up. ) - HEENT HEENT: Pharynx benign - Neck Neck: Supple, no meningeal sign, No adenopathy - Cardiac Cardiac: RRR, No murmur - Respiratory Respiratory: Clear bilaterally - Abdomen Abdomen: Normal bowel sounds, Soft, Non distended, No organomegaly, Other (tender LLQ with some local guarding but no percussion tenderness. No rebound tenderness. ) - Female Female : Deferred - Rectal Rectal: Deferred - Back Back: No CVA TTP - Derm Derm: Normal color, Warm and dry - Extremities Extremities: Normal ROM s pain, No edema, No calf tenderness / cord - Neuro Neuro: Alert and oriented X 3, No motor deficit, Normal speech Results - Vitals Vitals: Vital Signs - 24 hr 06/15/20 06/15/20 06/16/20 21:05 21:58 01:05 Temperature 37.4 C 37.4 C Heart Rate 89 89 84 Respiratory 22 22 14 Rate Blood Pressure 129/78 129/78 124/84 H O2 Saturation 97 97 100 Oxygen O2 Source Room air - Labs Labs: Laboratory Tests 06/15/20 06/15/20 06/15/20 21:23 21:23 23:58 WBC 12.3 H RBC 4.28 Hgb 12.8 Hct 38.0 MCV 88.8 MCH 29.9 MCHC 33.7 RDW 12.8 Plt Count 359 MPV 9.0 Neut # (Auto) 8.4 H Lymph # (Auto) 2.8 [place] # (Auto) 0.9 Eos # (Auto) 0.1 Baso # (Auto) 0.0 Absolute Nucleated RBC 0.00 Nucleated RBC % 0.0 Sodium 139 Potassium 3.7 Chloride 101 Carbon Dioxide 25 Anion Gap 13.0 BUN 14 Creatinine 0.9 Estimated GFR (MDRD) 70 L Glucose 101 H Calcium 9.0 Total Bilirubin 0.7 AST 18 ALT 18 Alkaline Phosphatase 74 Total Protein 8.1 Albumin 4.3 Globulin 3.8 Albumin/Globulin Ratio 1.1 Lipase 32 Urine Color YELLOW Urine Clarity CLEAR Urine pH 6.5 Ur Specific [place] <=1.005 Urine Protein TRACE Urine Glucose (UA) NEGATIVE Urine Ketones NEGATIVE Urine Occult Blood LARGE H Urine Nitrite NEGATIVE Urine Bilirubin NEGATIVE Urine Urobilinogen 0.2 (NORMAL) Ur Leukocyte Esterase NEGATIVE Urine RBC 0-5 Urine WBC 0-3 Ur Squamous Epith Cells MOD Squamous H Urine Bacteria Rare Ur Microscopic Review INDICATED Urine Culture Comments NOT INDICATED Urine HCG, Qual 06/15/20 23:58 WBC RBC Hgb Hct MCV MCH MCHC RDW Plt Count MPV Neut # (Auto) Lymph # (Auto) [place] # (Auto) Eos # (Auto) Baso # (Auto) Absolute Nucleated RBC Nucleated RBC % Sodium Potassium Chloride Carbon Dioxide Anion Gap BUN Creatinine Estimated GFR (MDRD) Glucose Calcium Total Bilirubin AST ALT Alkaline Phosphatase Total Protein Albumin Globulin Albumin/Globulin Ratio Lipase Urine Color Urine Clarity Urine pH Ur Specific [place] <1.005 Urine Protein Urine Glucose (UA) Urine Ketones Urine Occult Blood Urine Nitrite Urine Bilirubin Urine Urobilinogen Ur Leukocyte Esterase Urine RBC Urine WBC Ur Squamous Epith Cells Urine Bacteria Ur Microscopic Review Urine Culture Comments Urine HCG, Qual NEGATIVE - Rads (name of study) abd/pelvic CT Radiology: Prelim report reviewed (Left proximal ureterolithiasis, mild hydro. IUD with left arm into myometrium and appearing close to outer wall of the uterus. No signs of perforation. ), See rad report PD MEDICAL DECISION MAKING - ED course Complexity details: reviewed results (ureteral stone exactly same as January, so presume chronic stone versus new one. Her pain is LLQ and so more likely to be from the IUD in myometrium.), re-evaluated patient (much improved with IV meds (Fentanyl). Repeat dose as it wore off, but then more consistent relief with that and Toradol (after CT viewed). ), considered differential, d/w patient ED course: I am reluctant to remove the IUD here in ER (usually would be easy enough, but since the arm is embedded in the muscle wall, I am concerned it might be more di fficult or cause bleeding/etc and may need more expert ability). Defer to [employer], but I think she should get follow up promptly/urgently. 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 I also think she should f/u with Urology for presumed chronic ureteral stone. Departure - Departure Disposition: 01 Home, Self Care Clinical Impression: Left lower quadrant abdominal pain, Ureterolithiasis Malpositioned intrauterine device (IUD) Qualifiers: Encounter type: initial encounter Qualified Code(s): T83.32XA - Displacement of intrauterine contraceptive device, initial encounter Condition: Stable Record reviewed to determine appropriate education?: Yes Instructions: ED Abdominal Pain Unkn Cause, ED Stone Renal W Colic Follow-Up: Gillian You MD [Provider Admit Priv/Credential] - Eduin Ledezma MD [Provider Admit Priv/Credential] - Prescriptions: Naproxen 500 mg PO BID #25 tablet Oxycodone HCl/Acetaminophen [Percocet 5-325 mg Tablet] 1 each PO Q6H PRN #14 tablet PRN Reason: pain Promethazine [Phenergan] 25 mg PO Q6H PRN #10 tab PRN Reason: Nausea / Vomiting Comments: You do have a stone present in the proximal ureter at the same location and the same size that you had in January. My suspicion is that the same stone that has not moved and is likely not the cause of your current pain. However following up with urology to decide if that needs treatment given how long it has been located there. I suppose an alternative would be a second stone that happens to be the same size in the same location compared to January but that seems a little to coincidental. Otherwise I think your lower left pain is likely coming from the IUD arm irritating into the uterine muscle. There is not an other obvious cause for the pelvic pain on the CT scan or labs. I would suggest following up with gynecology tomorrow for IUD removal. Given the appearance of the IUD arm into the uterine muscle, I am a little more reluctant to try removing it here and defer to those who do it more often. Use some anti-inflammatories such as ibuprofen or naproxen 2-3 times a day. To that add Tylenol or Percocet as needed for pain and promethazine for nausea as needed. Again follow-up with gynecology tomorrow, call for an appointment and relay my opinion from the ER that they should see you more promptly in the next day or 2. Discharge Date/Time: 06/16/20 01:40
[2020-06-15] MEDS ORDERED: fentaNYL 100 MCG/2 ML VIAL IVP STA (21:29)
[2020-06-15 21:30] LABS: BASOPHILS % (AUTO) 0.2 %; EOSINOPHILS # (AUTO) 0.1 10^3/uL (0.0-0.7); EOSINOPHILS % (AUTO) 0.8 %; HGB - HEMOGLOBIN 12.8 g/dL (12.0-16.0); LYMPHOCYTES # (AUTO) 2.8 10^3/uL (1.5-3.5); LYMPHOCYTES % (AUTO) 22.9 %; MEAN CORPUSCULAR HEMOGLOBIN 29.9 pg (27.0-31.0); MEAN CORPUSCULAR HGB CONC 33.7 g/dL (32.0-36.0); MEAN CORPUSCULAR VOLUME 88.8 fL (81.0-99.0); MONOCYTES # (AUTO) 0.9 10^3/uL (0.0-1.0); MONOCYTES % (AUTO) 7.6 %; NEUTROPHILS # (AUTO) 8.4 10^3/uL (1.5-6.6); PLT - PLATELET COUNT 359 10^3/uL (130-450); RED BLOOD COUNT 4.28 10^6/uL (4.20-5.40); RED CELL DISTRIBUTION WIDTH 12.8 % (12.0-15.0); WHITE BLOOD COUNT 12.3 x10^3/uL (4.8-10.8)
[2020-06-15] MEDS ORDERED: KETOROLAC 30 MG/ML VIAL IVP STA (21:30)
[2020-06-15] MEDS ORDERED: ONDANSETRON 4 MG/2 ML VIAL IVP STA (21:30)
[2020-06-15 21:43] LABS: ALBUMIN 4.3 g/dL (3.2-5.5); ALBUMIN/GLOBULIN RATIO 1.1 (1.0-2.2); BILIRUBIN,TOTAL 0.7 mg/dL (0.2-1.0); CREATININE 0.9 mg/dL (0.4-1.0); TOTAL PROTEIN 8.1 g/dL (6.7-8.2)
[2020-06-15] MEDS ORDERED: IOVERSOL 320 100 ML VIAL IVP ONE ×2 (21:48→22:29)
[2020-06-15] MEDS ORDERED: SODIUM CHLORIDE 0.9% 1,000 ML IV STA (22:51)
[2020-06-16] MEDS ORDERED: oxyCODONE/ACET 5/325 Prepack 4 PO STA (00:08)
[2020-06-16] MEDS ORDERED: fentaNYL 100 MCG/2 ML VIAL IVP STA (00:08)
[2020-06-16 00:12] LABS: BILIRUBIN,URINE NEGATIVE (NEGATIVE); GLUCOSE, URINE (UA) NEGATIVE (NEGATIVE); KETONES,URINE (UA) NEGATIVE (NEGATIVE); LEUKOCYTE ESTERASE, URINE NEGATIVE (NEGATIVE); NITRITE,URINE NEGATIVE (NEGATIVE); OCCULT BLOOD,URINE LARGE (NEGATIVE); PH,URINE 6.5 PH (5.0-7.5); PROTEIN,URINE TRACE mg/dL (NEGATIVE); UROBILINOGEN,URINE 0.2 (NORMAL) E.U./dL (NORMAL)
[2020-06-16 00:14] LABS: HCG UR QUAL NEGATIVE
[2020-06-16 00:20] LABS: CLARITY,URINE CLEAR (CLEAR)
[2020-06-16 00:23] LABS: BACTERIA,URINE Rare /HPF (None Seen); RBC,URINE 0-5 /HPF (0-5); SQUAMOUS EPITHELIAL CELL,UR MOD Squamous (<= Few)
[2020-06-16] MEDS ORDERED: ONDANSETRON 4 MG/2 ML VIAL IVP STA (00:39)
[2020-06-16 01:05] VITALS: BP 124/84
--- NOTE | 2020-06-16 08:46 | CT Report ---
PROCEDURE: Abdomen/Pelvis W INDICATIONS: LLQ abd pain onset earlier today CONTRAST: IV CONTRAST: Optiray 320 ml: 100 PO CONTRAST: *NO PO CONTRAST TECHNIQUE: After the administration of intravenous contrast, 5 mm thick sections acquired from the diaphragms to the symphysis. 5 mm thick coronal and sagittal reformats were acquired. For radiation dose reducti on, the following was used: automated exposure control, adjustment of mA and/or kV according to kody ent size. COMPARISON: 01/20/2020. FINDINGS: Image quality: Excellent. ABDOMEN: Lung bases: Lung bases are clear. Heart size is normal. Solid organs: Liver and spleen are normal in size and enhancement. Gallbladder is unremarkable Dequan iary system is non dilated. Pancreas enhances normally. No adrenal nodules. Left kidney is mildly m alrotated. There is unchanged moderate left hydronephrosis and delayed left nephrogram. There is rela tively numerous small nonobstructing left renal stones. There is a persistent 4 mm proximal left uret er stone which does not appear changed in location from the previous study. It is present at the leve l of L3-L4. The ureter is funnel-shaped heading to the stone from above with mild diffuse ureteral wa ll thickening and mild ureteral wall enhancement. The right kidney is unremarkable with no hydronephr osis or mass. Peritoneum and bowel: Bowel loops demonstrate normal wall thickness and caliber. No free fluid or a ir. Nodes and vessels: No retroperitoneal or mesenteric adenopathy by size criteria. Aorta and inferior vena cava are normal in size. Miscellaneous: No ventral hernias. PELVIS: Genitourinary: Bladder wall thickness is normal. Miscellaneous: No inguinal hernias or adenopathy. Again noted is the presence of an IUD in the uter us. It seems a bit low. The left T limb likely extends into the myometrium. Bones: No suspicious bony lesions. No vertebral body compression fractures. IMPRESSION: 1. The left ureter now appears to be chronically obstructed by a 4 mm maximum diameter stone at the l evel of L3-L4, which is unchanged in location compared to a prior study from 01/20/2020. This results i n moderate left hydronephrosis and delayed left nephrogram. 2. Multiple nonobstructing small left renal stones. 3. The left ureter is funnel-shaped with mild wall thickening and enhancement superior to the stone, consistent with chronic inflammation. 3. Probable malposition of the IUD incidentally noted, with left limb apparently extending into the m yometrium. A preliminary report with the above findings was provided at the time of the study by [facility]. Reviewed by: Austin Luna MD on 06/16/2020 8:45 AM PDT Approved by: Austin Luna MD on 06/16/2020 8:45 AM PDT Station ID: [id number]
== END 2020-06-16 01:40 | disposition home or self-care (01) ==
LOC: ED 20:59
DX: N13.2 Hydronephrosis with renal and ureteral calculous obstruction (principal); T83.32XA Displacement of intrauterine contraceptive device, initial encounter
CPT/HCPCS: 36415; 74177; 80053; 81001; 81025; 83690; 85025; 96361; 96374; 96375; 96376; 99284; Q9967; 81003; 87086